=== PATIENT | male | born 1975 | race Caucasian/White ===

== ENCOUNTER 2024-10-09 19:25 | Emergency (ER) | payer OTHER ==
[2024-10-09 19:34] VITALS: BP 160/80; PULSE 86; RESP 16; TEMP 98.4; BMI 31.4
[2024-10-09] MEDS ORDERED: ONDANSETRON 4 MG/2 ML VIAL ONE (20:11)
[2024-10-09] MEDS ORDERED: PANTOPRAZOLE SODIUM 40 MG VIAL ONE (20:11)
[2024-10-09] MEDS: PANTOPRAZOLE SODIUM 40 MG VIAL IVPUSH ONE (20:19)
[2024-10-09] MEDS: ONDANSETRON 4 MG/2 ML VIAL IVPB ONE (20:19)
[2024-10-09 20:26] LABS: HEMATOCRIT 47.3 % (35.4-49); HEMOGLOBIN 15.8 G/dL (11.7-16.9); MCH 29.7 pg (25.7-33.7); MCHC 33.4 g/dl (32.0-35.9); MEAN PLT VOLUME 10.7 fl (7.5-11.1); PLATELET COUNT 134.6 10^3/uL (134-434); RBC 5.31 10^6/uL (4.00-5.60); RDW 13.5 % (11.9-15.9)
[2024-10-09 21:27] LABS: CREATININE 0.9 mg/dl (0.6-1.3)
[2024-10-09 21:29] LABS: CALCIUM 9.5 mg/dl (8.5-10.1); TOT PROT 7.2 g/dl (6.4-8.2)
[2024-10-09 21:30] LABS: ALBUMIN 4.4 g/dl (3.4-5.0); BILIRUBIN,TOTAL 0.4 mg/dl (0.2-1)
[2024-10-10] MEDS ORDERED: MAGNESIUM CITRATE 300 ML BOTTLE ONE (01:36)
[2024-10-10] MEDS: MAGNESIUM CITRATE 300 ML BOTTLE PO ONE (01:36)
== END 2024-10-10 01:42 | disposition home or self-care (01) ==
LOC: FER 19:25
PROC: 3E033GC Introduction of Other Therapeutic Substance into Peripheral Vein, Percutaneous Approach (ICD-10-PCS; principal; 2024-10-10)
PROC: 3E033GC Introduction of Other Therapeutic Substance into Peripheral Vein, Percutaneous Approach (ICD-10-PCS; 2024-10-10)
DX: K59.00 Constipation, unspecified (principal); R11.10 Vomiting, unspecified
CPT/HCPCS: 36415; 74019-TC-FY; 74177-TC; 80053; 82550; 84484; 85027; 93005; 99285-25; Q9967